=== PATIENT | female | born 1995 | race Caucasian/White ===

== ENCOUNTER 2024-08-09 17:53 | Emergency (ER) | payer MEDICAID, SELFPAY ==
--- NOTE | ~2024-08-09 | XR_ITS ---
EXAMINATION: XR ANKLE, LEFT CLINICAL INFORMATION: Rolled ankle, lateral swelling COMPARISON: None available. TECHNIQUE: AP, lateral, and mortise views of the left ankle. FINDINGS: No fracture. Alignment is anatomic. No erosions. Joint spaces are maintained. Soft tissue swelling overlying the lateral malleolus. XR/XR ankle LT min 3V IMPRESSION: Soft tissue swelling overlying the lateral malleolus. Electronically signed by: Radha Handy MD 08/09/2024 08:09 PM EDT RP
--- NOTE | ~2024-08-09 | XR_ITS ---
EXAMINATION: XR FOOT, LEFT CLINICAL INFORMATION: Rolled ankle COMPARISON: None available. TECHNIQUE: AP, lateral, and oblique views of the left foot. FINDINGS: The bones are normal. Soft swelling overlying the lateral malleolus. No fracture. Alignment is anatomic. Joint spaces are maintained. XR/XR foot LT min 3V IMPRESSION: Soft tissue swelling overlying the lateral malleolus. Electronically signed by: Radha Handy MD 08/09/2024 08:08 PM EDT RP
[2024-08-09 18:53] VITALS: BP 199/135; PULSE 78; RESP 16; TEMP 36.8; O2SAT 99; BMI 34.3
--- NOTE | 2024-08-09 18:54 | ED_ITS ---
HPI - Extremity Injury (Lower) General Chief Complaint: Extremity Injury, Lower Stated Complaint: Lt foot injury Related Data Allergies Allergy/AdvReac Type Severity Reaction Status Date / Time No Known Allergies Allergy Verified 08/09/24 18:58 Physical Exam Vital Signs: Vital Signs: Last Vital Signs Temp 98.3 F 08/09/24 18:53 Pulse 78 08/09/24 18:53 Resp 16 08/09/24 18:53 BP 199/135 H 08/09/24 18:53 Pulse Ox 99 08/09/24 18:53 O2 Del Method Room Air 08/09/24 18:53 BMI result Body Mass Index 34.3 Course Course Course Narrative: This is a Rapid Medical Examination (RME) performed by Thierry Funez PA-C in triage. Full HPI, ROS, assessment and treatment plan per primary provider in the Main ED. 28 yo female here w/ left ankle pain s/p rolling her left ankle at 1630 today. states she was napping on the couch and was abruptly awoken by her mother coming down the stairs, causing her to jump up and off the couch and roll her ankle. no otc meds [employer]. + noted swelling to lateral left ankle. NV intact. + hypertensive to 209/129. hx HTN, non med compliant. denies MERCER, dizziness, cp, palp, sob, vision changes. Plan: xrs Discharge Plan Discharge Print Language: Citizen Of [place]
--- NOTE | 2024-08-09 20:02 | ED_ITS ---
HPI - Extremity Injury (Lower) General Chief Complaint: Extremity Injury, Lower Stated Complaint: Lt foot injury Time Seen by Provider: 08/09/24 19:26 Source: patient Mode of arrival: ambulatory Limitations: no limitations History of Present Illness ED Provider: raquel HPI Narrative: Patient apparently rolled her left ankle will getting out of the bed complaining of pain in the left lateral malleolus area no deformity other injury patient does have history of preeclampsia about 8 years ago not taking any medication denies any headache blood pressure 199/135 at the time of triage Related Data Previous Rx's ?Medication ?Instructions ?Recorded amlodipine 10 mg tablet 10 mg PO DAILY #90 tabs 08/09/24 ibuprofen 600 mg tablet 600 mg PO Q6H PRN fever or pain 08/09/24 #30 tabs Allergies Allergy/AdvReac Type Severity Reaction Status Date / Time No Known Allergies Allergy Verified 08/09/24 18:58 Review of Systems 2 Review of Systems: Yes all other systems are reviewed and are negative PMFSH Social History Social History Advance Directives: No Advance Directives Information Provided: No Physical Exam 2 Vital Signs: Vital Signs: Last Vital Signs Temp 98 F 08/09/24 21:12 Pulse 72 08/09/24 21:12 Resp 20 08/09/24 21:12 BP 160/110 H 08/09/24 21:12 Pulse Ox 98 08/09/24 21:12 O2 Del Method Room Air 08/09/24 21:12 BMI result Body Mass Index 34.3 Extrem: Ankle/foot/toe images: 1. Soft tissue swelling lateral malleolus ankle mortise normal neurovascular normal no deformity Medications Administered Discontinued Medications Generic Name Dose Route Start Last Admin Trade Name Freq PRN Reason Stop Dose Admin Amlodipine Besylate 10 mg 08/09/24 21:00 08/09/24 21:03 Amlodipine Besylate 10 Mg Tablet PO 08/09/24 21:01 10 mg ONCE ONE Administration Protocol Ibuprofen 600 mg 08/09/24 20:00 08/09/24 20:07 Ibuprofen 600 Mg Tablet PO 08/09/24 20:01 600 mg ONCE ONE Administration Oxycodone HCl 10 mg 08/09/24 20:00 08/09/24 20:07 Oxycodone Hcl Immed Release 5 Mg Tablet PO 08/09/24 20:01 10 mg ONCE ONE Administration Medical Decision Making Medical Decision Making [facility] Narrative: Patient with left ankle sprain noted to have a high blood pressure which she had after preeclampsia noncompliant not taking her medications does not want any blood woke up does not have any PCP. Patient denied any headache no chest pain no palpitation no shortness a breath patient will prescribe patient amlodipine 10 mg daily advised to follow with PCP Discharge Plan Discharge Clinical Impression: Ankle sprain and strain, Hypertension Patient Disposition: Elopement Instructions: Ankle Sprain (DC), Chronic Hypertension (DC) Additional Instructions: Wear ankle Aircast for support use crutches for ambulation Take ibuprofen for pain Keep your left leg elevated Decrease salt intake Start taking amlodipine 10 mg daily for blood pressure control he should be less than 135/85 Prescriptions: New ibuprofen 600 mg tablet 600 mg PO Q6H PRN (Reason: fever or pain) Qty: 30 0RF amlodipine 10 mg tablet 10 mg PO DAILY Qty: 90 0RF Interventions: ED Discharge Assessment Last Done: 08/09/24 21:12 Discharge Date/Time: 08/09/24 21:14 Print Language: Upper Sorbian
[2024-08-09] MEDS: oxyCODONE HCl Immed Release 5 MG TABLET 10 MG PO (20:07)
[2024-08-09] MEDS: Ibuprofen 600 MG TABLET PO (20:07)
--- NOTE | 2024-08-09 20:07 | PC.NURSE ---
medication administered per provider order. effectiveness pending.
[2024-08-09 20:34] VITALS: BP 160/110; PULSE 72; RESP 20; TEMP 36.6; O2SAT 98
--- NOTE | 2024-08-09 20:55 | PC.NURSE ---
pt hypertensive when obtaining discharge vital signs. provider notified/aware.
[2024-08-09] MEDS: amLODIPine Besylate 10 MG TABLET PO (21:03)
--- NOTE | 2024-08-09 21:04 | PC.NURSE ---
medication administered per provider order.
[2024-08-09 21:12] VITALS: BP 160/110; PULSE 72; RESP 20; TEMP 36.6; O2SAT 98
== END 2024-08-09 21:14 | disposition left against medical advice (07) ==
PROVIDERS: Emergency Provider Internal Medicine
DX: S93.402A Sprain of unspecified ligament of left ankle, initial encounter (principal); S96.912A Strain of unspecified muscle and tendon at ankle and foot level, left foot, initial encounter; X50.9XXA Other and unspecified overexertion or strenuous movements or postures, initial encounter; I10 Essential (primary) hypertension; Y93.89 Activity, other specified; Y92.013 Bedroom of single-family (private) house as the place of occurrence of the external cause; Y99.9 Unspecified external cause status
CPT/HCPCS: 73610; 73630; 99283